=== PATIENT | female | born 1970 | race Caucasian/White ===

== ENCOUNTER 2018-02-19 17:00 | Emergency (ER) | END 2018-02-19 21:23 | disposition home or self-care (01) ==

== ENCOUNTER 2018-07-18 14:20 | Emergency (ER) | payer MEDICAID ==
[~2018-07-18] VITALS: Wt 59.4 kg
[~2018-07-18 14:20] MED LIST: HYDR-4011 PO; IBUP-1542 PO; IBUP-1561 PO; NITR-58 PO; PHEN-538 PO
[2018-07-18] MEDS ORDERED: SODIUM CHLORIDE 0.9% 1L BAG IV* STA (14:25)
[2018-07-18] MEDS ORDERED: CEFTRIAXONE 1 GM/50 ML (PMX) 50 ML IVPB STA (14:25)
[2018-07-18] MEDS ORDERED: ACETAMINOPHEN 325 MG TAB PO STA (14:25)
[2018-07-18] MEDS ORDERED: IBUP-1542 PO (15:43)
[2018-07-18] MEDS ORDERED: CEPH-443 PO (15:43)
--- NOTE | 2018-07-18 15:49 | ERD ---
ER Documentation Chief Complaint Chief Complaint ABD PAIN WITH NAUSEA AND VOMITING AND FEVERS FOR THE PAST WEEK HPI Patient is a 48-year-old female with no medical problems who presents with fevers. She denies cough. She has a headache. She has "bone pain". She has abdominal pain as well. Symptoms started 2 weeks ago. She tried Advil. Upon review of old medical records this is the patient's third visit to the ER since 2016. She does have a primary doctor. ROS All systems reviewed and are negative except as per history of present illness. Medications Home Meds Active Scripts Cephalexin* (Keflex*) 500 Mg Capsule, 500 MG PO QID for 7 Days, CAP Prov:EMMANUEL CM MD 07/18/18 Ibuprofen* (Motrin*) 600 Mg Tab, 600 MG PO Q6H PRN for PAIN AND OR ELEVATED TEMP, #30 TAB Prov:EMMANUEL CM MD 07/18/18 Ibuprofen* (Motrin*) 400 Mg Tab, 400 MG PO Q8 for 5 Days, #15 TAB Prov:MERVAT BEGUM MD 02/19/18 Hydrocodone/Acetaminophen ([place] 5-325 Tablet) 1 Each Tablet, 1 TAB PO BID PRN for PAIN, #14 TAB Prov:MERVAT BEGUM MD 02/19/18 Ibuprofen* (Motrin*) 600 Mg Tab, 600 MG PO Q6H PRN for PAIN AND OR ELEVATED TEMP, #30 TAB Prov:EMMANUEL CM MD 02/05/16 Phenazopyridine Hcl* (Pyridium*) 200 Mg Tab, 200 MG PO TID PRN for URINARY PAIN, #6 TAB Prov:EMMANUEL CM MD 02/05/16 Nitrofurantoin Monohyd Macrocr* (Macrobid*) 100 Mg Capsr, 100 MG PO BID for 7 Days, CAP Prov:EMMANUEL CM MD 02/05/16 Allergies Allergies: Coded Allergies: No Known Allergy (Unverified , 02/05/16) PMhx/Soc History of Surgery: No Anesthesia Reaction: No Hx Neurological Disorder: No Hx Respiratory Disorders: No Hx Cardiac Disorders: Yes (HTN) Hx Psychiatric Problems: No Hx Miscellaneous Medical Probl: No Hx Alcohol Use: No Hx Substance Use: No Hx Tobacco Use: No FmHx Family History: No diabetes Physical Exam Vitals Vital Signs Date Temp Pulse Resp B/P (MAP) Pulse Ox O2 O2 Flow FiO2 Time Delivery Rate 07/18/18 99.3 99 16 105/49 99 Room Air 16:25 (67) 07/18/18 102.0 14:44 07/18/18 102.2 140 20 134/75 99 14:22 (94) Physical Exam Const: Moderate distress Head: Atraumatic Eyes: Normal Conjunctiva ENT: Normal External Ears, Nose and Mouth. Neck: Full range of motion. No meningismus. Resp: Clear to auscultation bilaterally Cardio: Tachycardic rate without murmur Abd: Soft, non tender, non distended. Normal bowel sounds Skin: No petechiae or rashes Back: No midline or flank tenderness Ext: No cyanosis, or edema Neur: Awake and alert Psych: Normal Mood and Affect Result Diagram: 07/18/18 1439 07/18/18 1439 Results 24 hrs Laboratory Tests Test 07/18/18 14:38 07/18/18 14:39 Urine Test NEGATIVE White Blood Count 11.7 10^3/ul Red Blood Count 4.39 10^6/ul Hemoglobin 9.4 g/dl Hematocrit 31.8 % Mean Corpuscular Volume 72.4 fl Mean Corpuscular Hemoglobin 21.4 pg Mean Corpuscular Hemoglobin Concent 29.6 g/dl Red Cell Distribution Width 18.1 % Platelet Count 260 10^3/UL Mean Platelet Volume 11.1 fl Immature Granulocytes % 0.300 % Neutrophils % 91.7 % Lymphocytes % 3.2 % Monocytes % 4.3 % Eosinophils % 0.2 % Basophils % 0.3 % Nucleated Red Blood Cells % 0.0 /100WBC Immature Granulocytes # 0.040 10^3/ul Neutrophils # 10.8 10^3/ul Lymphocytes # 0.4 10^3/ul Monocytes # 0.5 10^3/ul Eosinophils # 0.0 10^3/ul Basophils # 0.0 10^3/ul Nucleated Red Blood Cells # 0.0 10^3/ul Prothrombin Time 13.1 Sec Prothrombin Time Ratio 1.0 INR International Normalized Ratio 0.98 Activated Partial Thromboplast Time 28.7 Sec Urine Color SHARON Urine Clarity CLEAR Urine pH 5.0 Urine Specific [place] 1.020 Urine Ketones NEGATIVE mg/dL Urine Nitrite POSITIVE mg/dL Urine Bilirubin NEGATIVE mg/dL Urine Urobilinogen 2+ mg/dL Urine Leukocyte Esterase NEGATIVE Skip/ul Urine Microscopic RBC 7 /HPF Urine Microscopic WBC 73 /HPF Urine Squamous Epithelial Cells FEW /HPF Urine Bacteria FEW /HPF Urine Mucus MODERATE /HPF Urine Hemoglobin 1+ mg/dL Urine Glucose NEGATIVE mg/dL Urine Total Protein 2+ mg/dl Sodium Level 139 mmol/L Potassium Level 3.6 mmol/L Chloride Level 107 mmol/L Carbon Dioxide Level 21 mmol/L Anion Gap 11 Blood Urea Nitrogen 13 mg/dl Creatinine 0.67 mg/dl Est Glomerular Filtrat Rate mL/min > 60 mL/min Glucose Level 215 mg/dl Lactic Acid Level 1.9 mmol/L Calcium Level 9.0 mg/dl Total Bilirubin 0.6 mg/dl Direct Bilirubin 0.00 mg/dl Indirect Bilirubin 0.6 mg/dl Aspartate Amino Transf (AST/SGOT) 23 IU/L Alanine Aminotransferase (ALT/SGPT) 27 IU/L Alkaline Phosphatase 105 IU/L Troponin I < 0.012 ng/ml Total Protein 7.5 g/dl Albumin 4.0 g/dl Globulin 3.50 g/dl Albumin/Globulin Ratio 1.14 Lipase 58 U/L Current Medications Medications Dose Sig/Ajay Start Time Status Last (Trade) Ordered Route PRN Stop Time Admin Dose Reason Admin Sodium 1,780 ml BOLUS OVER 2 07/18/18 DC 07/18/18 Chloride HOURS STAT 14:25 14:45 (NS) IV* 07/18/18 14:27 650 mg ONCE STAT 07/18/18 DC 07/18/18 Acetaminophen PO 14:25 14:44 (Tylenol 07/18/18 14:27 Tab) Ceftriaxone 50 ml @ ONCE STAT 07/18/18 DC 07/18/18 Sodium 100 mls/hr IVPB 14:25 14:44 07/18/18 14:54 Ketorolac 30 mg ONCE STAT 07/18/18 DC 07/18/18 Tromethamine IV 16:04 16:12 (Toradol) 07/18/18 16:05 Procedures/MDM EKG read by me: Rate/Rhythm: Sinus tachycardia rate of 110 Intervals: Normal Impression: Tachycardia without ischemia Chest x-ray read by radiology. Patient is a 48-year-old female with no medical problems who presents with fev er. The patient was found to have acute cystitis. Other than the imaging studies were negative and laboratory studies were benign. I doubt sepsis. The patient's heart rate and temperature improved with antipyretic treatment. The patient now has normal vital signs and I believe outpatient management is appropriate. The patient will be discharged with a prescription for antibiotics for the cystitis and will need to follow-up with her primary doctor within 24-48 hours. The patient could return sooner for any worsening symptoms. The patient was provided with copies of laboratory studies and imaging test prior to discharge. Departure Diagnosis: Primary Impression: Cystitis Additional Impression: Fever Fever type: unspecified Qualified Codes: R50.9 - Fever, unspecified Condition: Fair Patient Instructions: Cystitis Referrals: Your doctor Additional Instructions: Llame al doctor MAANA y david bal DAVIN PARA DENTRO DE 1-2 AKINS.Dgale a la secretaria que nosotros le instruimos hacer esta davin.Avise o llame si mackay condicin se empeora antes de la davin. Regresa aqui si peor o no mejor. EMMANUEL CM MD Jul 18, 2018 15:49
[2018-07-18] MEDS ORDERED: KETOROLAC 30 MG INJ IV STA (16:04)
[2018-07-18 16:25] VITALS: BP 105/49; PULSE 99; RESP 16
== END 2018-07-18 16:27 | disposition home or self-care (01) ==
LOC: E/R 14:20
DX: N30.90 Cystitis, unspecified without hematuria (principal); I10 Essential (primary) hypertension
CPT/HCPCS: 36415; 71045; 80053; 81001; 83605; 83690; 84484; 84703; 85025; 85610; 85730; 87040; 87086; 87400; 93005; 96374; 96375; J0696; J1885; J7030; Z7502; Z7610